=== PATIENT | female | born 1950 | race Caucasian/White ===

== ENCOUNTER 2019-03-13 09:39 | Emergency (ER) | payer MEDICARE, OTHER, BC ==
[2019-03-13 10:17] VITALS: BP 170/78
--- NOTE | 2019-03-13 10:49 | UC ---
Skin Complaint HPI - HPI Summary HPI Summary: Pt presents with c/o itchy, blistering rash on bilateral forearms that began after she weeded her garden "a few days ago" - History of Current Complaint Chief Complaint: UCRash Time Seen by Provider: 03/13/19 10:44 Stated Complaint: SKIN COMPLAINT Hx Obtained From: Patient ?: No Onset/Duration: Sudden Onset, Lasting Days, Still Present Skin Exposure Onset/Duration: Days Ago Timing: Constant Onset Severity: Mild Current Severity: Mild Pain Intensity: 0 Location: Other - bilateral forearms Character: Pruritus, Raised Aggravating Factor(s): Touch Alleviating Factor(s): OTC Creams/Salves - cortisone 10 Associated Signs & Symptoms: Positive: Negative Related History: Possible Reaction to: Environmental Exposure - Allergy/Home Medications Allergies/Adverse Reactions: Allergies Allergy/AdvReac Type Severity Reaction Status Date / Time No Known Allergies Allergy Verified 03/13/19 10:17 Home Medications: Home Medications Cholecalciferol (Vitamin D3) [Vitamin D3] 1,000 unit PO DAILY 03/13/19 [History Confirmed 03/13/19] Losartan TAB* [Cozaar TAB*] 25 mg PO DAILY 03/13/19 [History Confirmed 03/13/19] PMH/Surg Hx/FS Hx/Imm Hx Previously Healthy: Yes Endocrine History: Dyslipidemia - Surgical History Surgical History: None - Family History Known Family History: Positive: Cardiac Disease - Social History Occupation: Retired Lives: With Family Alcohol Use: None Substance Use Type: None Smoking Status (MU): Never Smoked Tobacco Have You Smoked in the Last Year: No Review of Systems All Other Systems Reviewed And Are Negative: Yes Constitutional: Positive: Negative Skin: Positive: Rash Eyes: Positive: Negative ENT: Positive: Negative Respiratory: Positive: Negative Cardiovascular: Positive: Negative Gastrointestinal: Positive: Negative Genitourinary: Positive: Negative Motor: Positive: Negative Neurovascular: Positive: Negative Musculoskeletal: Positive: Negative Neurological: Positive: Negative Psychological: Positive: Negative Is Patient Immunocompromised?: No Physical Exam Triage Information Reviewed: Yes Appearance: Well-Appearing Vital Signs: Initial Vital Signs Temp 98.1 F 03/13/19 10:11 Pulse 79 03/13/19 10:11 Resp 16 03/13/19 10:11 BP 170/78 03/13/19 10:11 Pulse Ox 100 03/13/19 10:11 Vital Signs Reviewed: Yes Eye Exam: Normal ENT: Positive: Hearing grossly normal Dental Exam: Normal Neck exam: Normal Respiratory: Positive: No respiratory distress Musculoskeletal Exam: Normal Neurological Exam: Normal Psychological Exam: Normal Skin: Positive: Rashes - raised, blistered rash on bialteral arms that pt states is "very itchy" Course/Dx - Differential Diagnoses - Skin Complaint Differential Diagnoses: Contact Dermatitis, Poison [place] - Diagnoses Provider Diagnosis: Contact dermatitis Discharge - Sign-Out/Discharge Documenting (check all that apply): Patient Departure All imaging exams completed and their final reports reviewed: No Studies - Discharge Plan Condition: Stable Disposition: HOME Prescriptions: Cetirizine* [ZyrTEC 10 MG TAB*] 10 mg PO DAILY #7 tab predniSONE TAB* [Deltasone 10 MG TAB*] 30 mg PO DAILY #12 tab Patient Education Materials: Contact Dermatitis (ED) Referrals: Roni Vigil MD [Primary Care Provider] - If Needed - Billing Disposition and Condition Condition: STABLE Disposition: Home
== END 2019-03-13 10:56 | disposition home or self-care (01) ==
LOC: UCCORT 09:39
DX: L25.9 Unspecified contact dermatitis, unspecified cause (principal)
CPT/HCPCS: 99202; G0463

== ENCOUNTER 2022-02-16 14:15 | Observation (INO) ==
[2022-02-16] MEDS ORDERED: ceFAZolin 2 GM in NS PREMIX 2 GM/100 ML BAG IVPB ONE ×2 (14:35→20:38)
[2022-02-16] MEDS ORDERED: Famotidine IV 10 MG/ML 2 ml VIAL (20 mg) ONE (15:33)
[2022-02-16] MEDS ORDERED: Famotidine IV 10 MG/ML 2 ml VIAL (20 mg) IV ONE (15:33)
[2022-02-16] MEDS ORDERED: Midazolam 5 mg/5 ml VIAL 1 mg/ml 5 ml VIAL (5 mg) ONE (15:38)
[2022-02-16] MEDS ORDERED: Lidocaine 2% PF 5 ML VIAL ONE ×2 (15:39→16:06)
[2022-02-16] MEDS ORDERED: ROPIVACAINE 5 MG/ML 30 ML BTL (0.5%) ONE (15:39)
[2022-02-16] MEDS ORDERED: fentaNYL 100 mcg/2 ml 50 MCG/ML VIAL ONE ×3 (15:39→18:54)
[2022-02-16] MEDS ORDERED: Lactated Ringers 1000 ml BAG 1,000 ML IV SCH ×2 (16:00→22:00)
[2022-02-16] MEDS ORDERED: Propofol 10 MG/ML 20 ML BTL ONE (16:06)
[2022-02-16] MEDS ORDERED: Rocuronium 50 mg VIAL 10 mg/ml 5 ml VIAL (50 mg) ONE (16:06)
[2022-02-16] MEDS ORDERED: Phenylephrine IV 10 MG/ML 1 ml VIAL ONE (16:52)
[2022-02-16] MEDS ORDERED: Ondansetron 4 mg VIAL 2 MG/ML 2 ml VIAL ONE (17:10)
[2022-02-16] MEDS ORDERED: Dexamethasone IV 4 MG/ML VIAL 1 ml VIAL ONE (17:10)
[2022-02-16] MEDS ORDERED: Acetaminophen IV 1 GM/100ML 100 ML IV ONE (17:49)
[2022-02-16] MEDS ORDERED: Ondansetron 4 mg VIAL 2 MG/ML 2 ml VIAL IV PRN ×2 (18:00→21:25)
[2022-02-16] MEDS ORDERED: fentaNYL 100 mcg/2 ml 50 MCG/ML VIAL IV PRN (18:00)
[2022-02-16] MEDS ORDERED: HYDROmorphone 1 MG/1 ML SYRINGE IV PRN (18:00)
[2022-02-16] MEDS ORDERED: Naloxone 0.4 mg VIAL 0.4 mg/ml 1 ml VIAL IV PRN (18:00)
[2022-02-16] MEDS ORDERED: HYDROmorphone 0.5 MG/0.5 ML SYRINGE ONE (18:28)
[2022-02-16] MEDS ORDERED: Vancomycin 1,000 MG VIAL ONE (20:46)
[2022-02-16] MEDS ORDERED: Bupivacaine 0.25% SDV PF 10 ML VIAL INJ ONE (20:54)
[2022-02-16] MEDS ORDERED: Morphine 2 MG/ML SYRINGE IV PRN (21:25)
[2022-02-16] MEDS ORDERED: Magnesium Hydroxide LIQ 30 ML UDC PO PRN (21:25)
[2022-02-16] MEDS ORDERED: Ondansetron ODT 4 mg TAB 4 MG TAB PO PRN (21:25)
[2022-02-16] MEDS ORDERED: Lactulose 30 ml UDC PO PRN (21:25)
[2022-02-17] MEDS: ceFAZolin 1 GM ADVAN 1 GM in NS 0.9% 50 ML 50 ML IVPB SCH ×2 (01:30→07:55)
[2022-02-17 06:19] LABS: Hematocrit 36 % (35-47); Hemoglobin 12.3 g/dL (12.0-16.0); Mean Platelet Volume 7.3 fL (7.4-10.4); Platelet Count 326 10^3/uL (150-450)
[2022-02-17 06:44] LABS: Calcium 8.7 mg/dL (8.6-10.3)
[2022-02-17] MEDS: Magnesium Hydroxide LIQ 30 ML UDC PO SCH ×2 (07:55→08:30)
[2022-02-17] MEDS ORDERED: Vitamin THERAPEUTIC TAB PO SCH (09:00)
[2022-02-17 10:22] VITALS: BP 146/63
[2022-02-17] MEDS ORDERED: Enoxaparin 40 MG/0.4 ML SYR SUBCUT SCH (12:00)
== END 2022-02-17 10:37 | disposition home or self-care (01) ==
LOC: OR 14:15 → INTOOBSV 23:12 → ICU 23:12
PROVIDERS: ADMIT Orthopaedic Surgery Hand Surgery; ATTEND Orthopaedic Surgery Hand Surgery